=== PATIENT | male | born 1945 | race Caucasian/White ===

== ENCOUNTER 2017-06-19 20:55 | Inpatient (IN) | payer MEDICARE ==
[~2017-06-19] VITALS: Ht 180.3 cm; Wt 73.0 kg
[~2017-06-19 20:55] MED LIST: LISI1TAB11 PO; TRAV5DRO OP
[2017-06-19] MEDS ORDERED: ipratropium/albuterol 3ml nebule NEB ONE (23:10)
[2017-06-19] MEDS ORDERED: methylPREDNISolone sod succ 125mg/2ml vial IV ONE (23:25)
[2017-06-19 23:56] LABS: BASOPHILS % (AUTO) 0.2 % (0-1); EOSINOPHILS % (AUTO) 0 % (0-6); HEMATOCRIT 46.3 % (42.0-52.0); HEMOGLOBIN 15.7 g/dl (14.0-17.9); LYMPHOCYTES # (AUTO) 0.8 X10'3 (1.1-4.8); LYMPHOCYTES % (AUTO) 10.8 % (21-51); MEAN CORPUSCULAR HEMOGLOBIN 30.7 PG (27.0-31.0); MEAN CORPUSCULAR HGB CONC 33.9 % (33.0-36.5); MEAN CORPUSCULAR VOLUME 90.4 FL (78-98); MEAN PLATELET VOLUME 8.2 FL (7.4-10.4); MONOCYTES # (AUTO) 0.5 X10'3 (0-0.9); MONOCYTES % (AUTO) 6.6 % (2-12); NEUTROPHILS # (AUTO) 6.3 X10'3 (1.8-7.7); NEUTROPHILS % (AUTO) 82.4 % (42-75); PLATELET COUNT 153 X10'3 (140-440); RED BLOOD COUNT 5.12 X10'6 (4.70-6.10); RED CELL DISTRIBUTION WIDTH 14.6 % (11.5-14.5); WHITE BLOOD COUNT 7.6 X10'3 (4.5-11.0)
[2017-06-20 00:21] LABS: ALANINE AMINOTRANSFERASE 28 U/L (12-78); ALBUMIN 3.8 G/DL (3.4-5.0); ALBUMIN/GLOBULIN RATIO 1.1 (1.1-1.5); ALKALINE PHOSPHATASE 66 IU/L (46-116); ANION GAP 11 (8-16); ASPARTATE AMINO TRANSFERASE 17 U/L (10-37); BILIRUBIN,TOTAL 0.5 MG/DL (0.1-1.0); BLOOD UREA NITROGEN 15 MG/DL (7-18); BUN/CREATININE RATIO 13.9 (5.4-32.0); CALCIUM 8.7 MG/DL (8.5-10.1); CHLORIDE 103 MMOL/L (99-107); CREATININE 1.08 MG/DL (0.60-1.10); GLUCOSE 113 MG/DL (70-104); POTASSIUM 4.1 MMOL/L (3.5-5.1); SODIUM 139 MMOL/L (135-145); TOTAL CARBON DIOXIDE 24.6 MMOL/L (24-32); TOTAL PROTEIN 7.4 G/DL (6.4-8.2); eGFR 67 ML/MIN
[2017-06-20] MEDS ORDERED: HYDROchlorothiazide 25mg tablet PO ONE (00:25)
[2017-06-20] MEDS ORDERED: lisinopril 10 MG tablet PO ONE (00:25)
[2017-06-20 00:38] LABS: INR 1.1 INR; PARTIAL THROMBOPLASTIN TIME 27 SECONDS (22-32); PROTHROMBIN TIME 10.9 SECONDS (9.0-12.0)
[2017-06-20] MEDS ORDERED: mag hydrox/Alum hydrox/simeth 30ml oral suspension PO PRN (01:10)
[2017-06-20] MEDS ORDERED: ondansetron/PF 4mg/2ml inj IV PRN (01:10)
[2017-06-20] MEDS ORDERED: magnesium hydroxide 30ml (MOM) UD suspension PO PRN (01:10)
[2017-06-20] MEDS ORDERED: acetaminophen 325mg tablet PO PRN (01:10)
[2017-06-20] MEDS ORDERED: aspirin 325mg tablet PO ONE (03:15)
[2017-06-20] MEDS: ipratropium/albuterol 3ml nebule NEB SCH ×6 (03:41→23:13)
[2017-06-20 03:49] LABS: CLARITY,URINE CLEAR (Clear); COLOR,URINE YELLOW (Yellow); GLUCOSE, URINE NEGATIVE (Neg); KETONES,URINE 15 mg/dl (Neg); LEUKOCYTE ESTERASE ,URINE NEGATIVE (Neg); NITRITES, URINE NEGATIVE (Neg); OCCULT BLOOD,URINE TRACE-LYSED (Neg); PROTEIN,URINE NEGATIVE (Neg); UROBILINOGEN,URINE 0.2 E.U/dL (0.2-1.0)
[2017-06-20 04:01] LABS: UA COLLECTION TYPE VOIDED; URINE AMPHETAMINE SCREEN NEGATIVE (Neg); URINE BARBITUATE SCREEN NEGATIVE (Neg); URINE BENZODIAZEPINES SCREEN NEGATIVE (Neg); URINE CANNABINOID SCREEN NEGATIVE (Neg); URINE COCAINE SCREEN NEGATIVE (Neg); URINE METHADONE SCREEN NEGATIVE (Neg); URINE OPIATE SCREEN NEGATIVE (Neg); URINE PHENCYCLIDINE SCREEN NEGATIVE (Neg)
[2017-06-20] MEDS: enoxaparin 80mg/0.8ml syringe SUBCUT SCH ×2 (04:01→20:56)
[2017-06-20 04:05] LABS: BACTERIA,URINE NONE SEEN /HPF (Neg); RBC,URINE 0-2 /HPF (0-2); SQUAMOUS EPITHELIAL CELL,UR FEW /LPF (FEW); WBC,URINE 0-4 /HPF (0-4)
[2017-06-20] MEDS: aspirin 81mg tablet.DR PO SCH (08:25)
[2017-06-20] MEDS: methylPREDNISolone sod succ/PF 40mg inj. IV SCH ×2 (08:25→16:57)
[2017-06-20] MEDS: lisinopril 20mg tablet PO SCH (08:25)
[2017-06-20] MEDS: HYDROchlorothiazide 12.5mg capsule PO SCH (08:25)
[2017-06-20] MEDS: budesonide 0.5mg/2ml UD nebule IH SCH ×2 (08:51→19:26)
[2017-06-20] MEDS ORDERED: iohexol 350MG/ML 100ml bottle IV ONE (10:01)
[2017-06-20 11:16] LABS: CHOL/HDL RATIO 5.1 (0.00-4.99); CHOLESTEROL 187 MG/DL (0-200); HDL CHOLESTEROL 37 MG/DL (35-60); LDL CHOLESTEROL 132 MG/DL (50-100); TRIGLYCERIDES 43 MG/DL (20-135)
[2017-06-20] MEDS: atorvastatin 20mg tablet PO SCH (11:34)
[2017-06-20] MEDS: metoprolol tartrate 25mg tablet PO SCH ×2 (11:34→20:55)
[2017-06-20] MEDS ORDERED: BRIM5DRO (16:51)
[2017-06-20] MEDS ORDERED: latanoprost 0.005% 2.5ml ophthalmic drops EACHEYE SCH (21:00)
[2017-06-21] MEDS: methylPREDNISolone sod succ/PF 40mg inj. IV SCH ×2 (01:17→10:30)
[2017-06-21] MEDS: ipratropium/albuterol 3ml nebule NEB SCH ×3 (03:51→10:41)
[2017-06-21 06:31] LABS: BASOPHILS % (AUTO) 0.1 % (0-1); EOSINOPHILS # (AUTO) 0.1 X10'3 (0-0.9); EOSINOPHILS % (AUTO) 1.2 % (0-6); HEMATOCRIT 44.5 % (42.0-52.0); HEMOGLOBIN 15.6 g/dl (14.0-17.9); LYMPHOCYTES # (AUTO) 0.6 X10'3 (1.1-4.8); LYMPHOCYTES % (AUTO) 6.6 % (21-51); MEAN CORPUSCULAR HEMOGLOBIN 30.7 PG (27.0-31.0); MEAN CORPUSCULAR HGB CONC 34.9 % (33.0-36.5); MEAN CORPUSCULAR VOLUME 87.8 FL (78-98); MEAN PLATELET VOLUME 8.5 FL (7.4-10.4); MONOCYTES # (AUTO) 0.4 X10'3 (0-0.9); MONOCYTES % (AUTO) 4.2 % (2-12); NEUTROPHILS # (AUTO) 8.5 X10'3 (1.8-7.7); NEUTROPHILS % (AUTO) 87.9 % (42-75); PLATELET COUNT 161 X10'3 (140-440); RED BLOOD COUNT 5.07 X10'6 (4.70-6.10); RED CELL DISTRIBUTION WIDTH 14.4 % (11.5-14.5); WHITE BLOOD COUNT 9.7 X10'3 (4.5-11.0)
[2017-06-21 06:33] LABS: ALBUMIN 3.5 G/DL (3.4-5.0); ANION GAP 11 (8-16); BLOOD UREA NITROGEN 23 MG/DL (7-18); BUN/CREATININE RATIO 22.8 (5.4-32.0); CALCIUM 8.9 MG/DL (8.5-10.1); CHLORIDE 98 MMOL/L (99-107); CREATININE 1.01 MG/DL (0.60-1.10); GLUCOSE 141 MG/DL (70-104); POTASSIUM 3.8 MMOL/L (3.5-5.1); SODIUM 136 MMOL/L (135-145); TOTAL CARBON DIOXIDE 27.4 MMOL/L (24-32); eGFR 72 ML/MIN
[2017-06-21] MEDS ORDERED: COMBIGAN EACHEYE SCH (08:00)
[2017-06-21] MEDS ORDERED: metoprolol tartrate 25mg tablet PO SCH (08:00)
[2017-06-21] MEDS ORDERED: OPTH EACHEYE SCH ×2 (08:00)
[2017-06-21] MEDS ORDERED: TRAVATAN Z 0.004% EACHEYE SCH (08:00)
[2017-06-21 09:28] LABS: MAGNESIUM 2.2 MG/DL (1.5-2.4)
[2017-06-21] MEDS: lisinopril 20mg tablet PO SCH (09:54)
[2017-06-21] MEDS: enoxaparin 80mg/0.8ml syringe SUBCUT SCH (10:01)
[2017-06-21] MEDS: aspirin 81mg tablet.DR PO SCH (10:28)
[2017-06-21] MEDS: atorvastatin 20mg tablet PO SCH (10:30)
[2017-06-21] MEDS: HYDROchlorothiazide 12.5mg capsule PO SCH (10:30)
[2017-06-21] MEDS: budesonide 0.5mg/2ml UD nebule IH SCH (10:41)
[2017-06-21 11:04] LABS: PLATELET ESTIMATE NORMAL; TOTAL CELLS COUNTED 100
[2017-06-21 11:50] VITALS: BP 162/82
[2017-06-21] MEDS ORDERED: DOXY100C2 PO (14:47)
[2017-06-21] MEDS ORDERED: PRED10TA23 PO (14:47)
[2017-06-21] MEDS ORDERED: ATOR20TA PO (14:47)
[2017-06-21] MEDS ORDERED: ASPI-1265 PO (14:47)
[2017-06-21] MEDS ORDERED: METO-384 PO (14:47)
[2017-06-21] MEDS ORDERED: ALBU8HFA PO (14:47)
[2017-06-21] MEDS ORDERED: LISI-600 PO (14:47)
== END 2017-06-21 15:54 | disposition home or self-care (01) | DRG 190 ==
LOC: ER 20:56 → ED HOLD 06-20 01:06 → EDBEDREQ 06-21 10:50 → ORTHO 4S 06-21 11:52
PROVIDERS: ADMIT Family Medicine; ATTEND Family Medicine
PROC: B32T1ZZ Computerized Tomography (CT Scan) of Left Pulmonary Artery using Low Osmolar Contrast (ICD-10-PCS; principal; 2017-06-20)
PROC: B3201ZZ Computerized Tomography (CT Scan) of Thoracic Aorta using Low Osmolar Contrast (ICD-10-PCS; 2017-06-20)
PROC: B32S1ZZ Computerized Tomography (CT Scan) of Right Pulmonary Artery using Low Osmolar Contrast (ICD-10-PCS; 2017-06-20)
DX: J44.1 Chronic obstructive pulmonary disease with (acute) exacerbation (principal); I21.A1 Myocardial infarction type 2; H40.9 Unspecified glaucoma; I10 Essential (primary) hypertension; I25.10 Atherosclerotic heart disease of native coronary artery without angina pectoris; F17.200 Nicotine dependence, unspecified, uncomplicated; Z79.899 Other long term (current) drug therapy; Z80.3 Family history of malignant neoplasm of breast; Z82.49 Family history of ischemic heart disease and other diseases of the circulatory system
CPT/HCPCS: 36415; 71046; 71260; 80048; 80053; 80061; 80305; 81001; 83735; 83880; 84484; 85025; 85610; 85730; 87070; 93005; 93308; 94640; 94760; J1650; J2920; J2930; J7030; J7626; Q9967